=== PATIENT | female | born 1930 | race Caucasian/White ===

== ENCOUNTER → 2016-12-30 | Outpatient (CLI) | payer BC ==
[~2016-12-30] MED LIST: ASCO500T16 PO; ASPCH81X PO; ATOR80TA PO; CALC600T PO; CALCTAB5 PO; CHOL1TAB76 PO; CYAN100020 PO; CZR50 PO; DOCU-94 PO; HYDR-5688 PO; IBUP-1427 PO; INSDGIPEN SC; INSU1INJ SC; INSUINJ4 SC; LATA0.009 OP; LATA0.5S OP; LOSA1TAB38 PO; MAGN250T9 PO; METF-384 PO; NITR0.4S76 SL; NVLG SC; NVLGI SC
[2016-12-30 13:31] LABS: HEMATOCRIT 39.7 % (37-47); MEAN CORPUSCULAR HEMOGLOBIN 28.8 pg (25-34); MEAN CORPUSCULAR HGB CONC 32.7 g/dl (32-36); RED BLOOD COUNT 4.51 M/uL (4.2-5.4); WHITE BLOOD COUNT 7.48 K/uL (4.8-10.8)
[2016-12-30 13:32] LABS: BASO % 0.4 %; BASO ABS # 0.03 K/uL (0-0.2); COMPLETE YES; EOS % 3.5 %; IG% 0.1 %; LYMPH % 13.1 %; LYMPH ABS # 0.98 K/uL (1.2-3.4); MEAN PLATELET VOLUME 10.1 fL (7.4-10.4); MONO % 9.5 %; NEUT % 73.4 %; PLATELET COUNT 234 K/uL (130-400)
[2016-12-30 13:52] LABS: ALT/SGPT 41 U/L (12-78); AST/SGOT 22 U/L (15-37); BLOOD UREA NITROGEN 30 mg/dl (7-18); BUN/CREATININE RATIO 27.1 (10-20); CALCIUM 9.4 mg/dl (8.5-10.1); CARBON DIOXIDE 28 mmol/L (21-32); CHLORIDE 104 mmol/L (98-107); GLUCOSE 236 mg/dl (70-99); POTASSIUM 4.9 mmol/L (3.5-5.1); SODIUM 139 mmol/L (136-145)
[2016-12-30 13:57] LABS: ESTIMATED AVERAGE GLUCOSE 186 mg/dl; HA1C FLAG Normal (Normal)
== END | disposition home or self-care (01) ==
LOC: C.LABBC 11:25
PROVIDERS: ATTEND Internal Medicine
DX: E78.00 Pure hypercholesterolemia, unspecified (principal); E11.9 Type 2 diabetes mellitus without complications

== ENCOUNTER → 2017-03-24 | Day surgery (SDC) | payer BC ==
[2017-03-23 10:05] VITALS: Ht 168.9 cm; Wt 75.0 kg
[~2017-03-24] VITALS: Ht 168.9 cm; Wt 75.0 kg
[~2017-03-24] MED LIST changes: +500ML BSS 0.3ML EPI 1:1000PF IRRIG ONE; +ACETAMINOPHEN 325 MG TAB PO PRN; +AMVISC PLUS 0.8ML SYRINGE INT OCU ONE; +ATROPINE SULFATE 0.1 MG/ML 5ML SYR IV PRN; +AcetaZOLAMIDE 250 MG TAB PO SCH; +BETAXOLOL HCL 0.25% OP SUSP PER DROP CHARGE OPL SCH; +BRIMONIDINE TART 0.2% OP SOLN PER DROP CHARGE ONE; -DOCU-94 PO; +ENDOCOAT 0.85ML SYRINGE INT OCU ONE; +EpINEphrine INJ 1MG/ML AMP 1 MG/ML AMP ONE; +FENTANYL CITRATE INJ 50 MCG/1 ML 2 ML VIAL ONE; -HYDR-5688 PO; -IBUP-1427 PO; +LACTATED RINGER'S 1000ML 500 ML IV SCH; +LIDOCAINE 4% OP SOLN DROP CHARGE ONE; +LIDOCAINE 4% OP SOLN DROP CHARGE OPL SCH; +MIDAZOLAM HCL 1 MG/ML 2ML VIAL ONE; +MIX: 4ML BSS 1ML EPI 1:1000 PF INSTIL ONE; +MOXIFLOXACIN OPH SOLN PER DROP CHARGE ONE; +NITR0.1S SL; -NITR0.4S76 SL; +OCUCOAT 1 ML SOLN IO ONE; +POVIDONE-IODINE OP SOLN 30 ML BTL ONE; +PROPARACAINE 0.5% OP SOLN PER DROP CHARGE OPL SCH; +TOBRAMYCIN/DEXAMETHASONE OPH OINT PER APPLN CHARGE ONE
--- NOTE | 2017-03-24 07:29 | History & Physical Bridge - [place] ---
H&P Re-Evaluation Bridge Note: I have examined the patient, reviewed the History & Physical and in the interval since the performance of the History & Physical I have noted the following changes of clinical significance: No changes noted
[2017-03-24] MEDS: PHENYLEPHRINE HCL 2.5% OP SOLN PER DROP CHARGE OPL SCH ×2 (08:40→08:45)
[2017-03-24] MEDS: CYCLOPENTOLATE HCL 1% OP SOLN PER DROP CHARGE OPL SCH ×2 (08:41→08:47)
[2017-03-24] MEDS: TROPICAMIDE 1% OP SOLN PER DROP CHARGE OPL SCH ×2 (08:42→08:46)
[2017-03-24] MEDS: MOXIFLOXACIN OPH SOLN PER DROP CHARGE OPL SCH ×2 (08:44→08:54)
[2017-03-24] MEDS: LIDOCAINE HCL 1% MPF 2 ML VIAL ONE ×2 (09:40→09:41)
--- NOTE | 2017-03-24 09:44 | Discharge Instructions-SurgCtr ---
Discharge Instructions Date of Service Mar 24, 2017. Visit Reason for Visit: Cataract Left Eye Discharge Discharge Diagnosis / Problem: lens implant left eye Discharge Goals Goal(s): Improve function Medications Stopped Medications Name(s): Stopped Metformin for 48 hours. Activity Recommendations Activity Limitations: resume your previous activity Lifting Limitations: no more than 10 pounds Exercise/Sports Limitations: gradually increase as tolerated May Resume Sexual Activity: when tolerated Shower/Bathe: tomorrow Driving or Machine Use: resume 1 day after discharge Anesthesia . Post Anesthesia Instructions: If you have had General Anesthesia or IV Sedation: * Do not drive today. * Resume driving when surgeon permits. * Do not make important decisions or sign legal documents today. * Call surgeon for: 1. Temperature elevations greater than 101 degrees F. 2. Uncontrollable pain. 3. Excessive bleeding. 4. Persistent nausea and vomiting. 5. Medication intolerance (nausea, vomiting or rash). * For nausea and vomiting use only clear liquids such as: tea, soda, bouillon until nausea subsides, then gradually increase diet as tolerated. * If you have any concerns or questions, call your surgeon's office. If physician is unavailable and it is an emergency, call 911 or go to the nearest emergency room. . Instructions / Follow-Up Instructions / Follow-Up ACTIVITY RECOMMENDATIONS: * Light activities. * Mild irritation and blurred vision are common for the first few days. * You may walk outside, read, watch television. * Redness around the white part of the eye is common. MEDICATIONS: Resume previous medications unless instructed otherwise by your surgeon. Start all eye drops at 1 pm today: * Eye drops (today and tomorrow): Prednisone - one drop in operative eye every 3 hours while awake Ofloxacin - one drop in operative eye every 3 hours while awake Ilevro - one drop in operative eye once a day Continue Glaucoma Drops : Latanoprost in Right Eye Every Evening SPECIAL CARE INSTRUCTIONS: * Tape plastic shield over eye to sleep at night. Call your doctor at with any concerns or problems. FOLLOW UP VISIT: Follow-up with Dr Grimaldo at [facility] office as scheduled. Diet Recommendations Home Diet: no limitations Procedures Procedures Performed: cataract extraction with lens implant Pending Studies Studies pending at discharge: no Medical Emergencies . Who to Call and When: Medical Emergencies: If at any time you feel your situation is an emergency, please call 911 immediately. . Non-Emergent Contact Non-Emergency issues call your: Medical Administrative Assistant Call Non-Emergent contact if: your pain is not controlled [phone] . . "Provider Documentation" section prepared by Jaswinder Grimaldo. .
--- NOTE | 2017-03-24 09:46 | [facility] Operative Report ---
Operative Report Date of Service Mar 24, 2017. Operative Report 1. PREOPERATIVE DIAGNOSIS: Senile nuclear cataract, left eye. 2. POSTOPERATIVE DIAGNOSIS: Senile nuclear cataract, left eye. 3. PROCEDURE: Phacoemulsification of left cataract with posterior chamber lens implant, type [employer], model MX60, power +22 diopters. ANESTHESIA: Local standby. SURGEON: Dr. Grimaldo. COMPLICATIONS: None. OPERATING TIME: 10 minutes. 4. OPERATION AND FINDINGS: DESCRIPTION OF PROCEDURE: The left pupil was dilated. The anesthetic was administered using a topical technique. The left eye was prepped and draped. A speculum was placed. A clear corneal incision was formed. The chamber was filled with Amvisc Plus and Endocoat. Epinephrine solution was used. A paracentesis was placed. A capsulorrhexis was performed. The nucleus was hydrodissected. A lens was removed with phacoemulsification. Time was 9.06 seconds. The aspiration unit was used to remove the cortex. The capsule was filled with Amvisc Plus. The lens implant was folded and placed into the capsule. The incision was hydrated. The Amvisc was aspirated. The wound was secure. The chamber was deep. The pupil was round. Brimonidine, TobraDex ointment and Vigamox solution were placed. The speculum was removed. The patient was returned to the Recovery Room in stable condition. I attest to the content of the Intraoperative Record and any orders documented therein. Any exceptions are noted below. The scribe's documentation has been prepared in my presence, under my direction and personally reviewed by me in its entirety. I confirm that the note above accurately reflects all work, treatment, procedures, and medical decision making performed by me. I personally scribed for Jaswinder Grimaldo M.D. ([email or web address]) on 03/24/17 at 09:46. Electronically submitted by Liv Kelly ([facility]).
[2017-03-24 09:48] VITALS: TEMP 36.6
[2017-03-24 10:17] VITALS: BP 130/72; PULSE 58; O2SAT 98
--- NOTE | 2017-03-24 10:24 | Anesthesia Progress Nt - [facility] ---
Anesthesia Post Op Note Date & Time Mar 24, 2017 at 10:24 Vital Signs Pain Intensity: 0 Vital Signs Past 12 Hours Date Time Temp Pulse Resp B/P (MAP) Pulse Ox O2 Delivery O2 Flow Rate FiO2 03/24/17 10:17 58 16 130/72 (91) 98 Room Air 03/24/17 09:48 36.6 78 16 135/60 (85) 96 Room Air 03/24/17 08:45 36.5 62 18 138/76 (96) 98 Room Air Notes Mental Status: alert / awake / arousable, participated in evaluation Pt Amnestic to Procedure: Yes Nausea / Vomiting: adequately controlled Pain: adequately controlled Airway Patency, RR, SpO2: stable & adequate BP & HR: stable & adequate Hydration State: stable & adequate Anesthetic Complications: no major complications apparent
== END | disposition home or self-care (01) ==
LOC: X.SURG 07:42
PROVIDERS: ATTEND Specialist
DX: H25.12 Age-related nuclear cataract, left eye (principal); I10 Essential (primary) hypertension

== ENCOUNTER → 2017-05-19 | Outpatient (CLI) | payer BC ==
[~2017-05-19] MED LIST changes: -500ML BSS 0.3ML EPI 1:1000PF IRRIG ONE; -ACETAMINOPHEN 325 MG TAB PO PRN; -AMVISC PLUS 0.8ML SYRINGE INT OCU ONE; -ATROPINE SULFATE 0.1 MG/ML 5ML SYR IV PRN; -AcetaZOLAMIDE 250 MG TAB PO SCH; -BETAXOLOL HCL 0.25% OP SUSP PER DROP CHARGE OPL SCH; -BRIMONIDINE TART 0.2% OP SOLN PER DROP CHARGE ONE; -ENDOCOAT 0.85ML SYRINGE INT OCU ONE; -EpINEphrine INJ 1MG/ML AMP 1 MG/ML AMP ONE; -FENTANYL CITRATE INJ 50 MCG/1 ML 2 ML VIAL ONE; -LACTATED RINGER'S 1000ML 500 ML IV SCH; -LIDOCAINE 4% OP SOLN DROP CHARGE ONE; -LIDOCAINE 4% OP SOLN DROP CHARGE OPL SCH; -MIDAZOLAM HCL 1 MG/ML 2ML VIAL ONE; -MIX: 4ML BSS 1ML EPI 1:1000 PF INSTIL ONE; -MOXIFLOXACIN OPH SOLN PER DROP CHARGE ONE; -NITR0.1S SL; +NITR0.4S76 SL; -OCUCOAT 1 ML SOLN IO ONE; -POVIDONE-IODINE OP SOLN 30 ML BTL ONE; -PROPARACAINE 0.5% OP SOLN PER DROP CHARGE OPL SCH; -TOBRAMYCIN/DEXAMETHASONE OPH OINT PER APPLN CHARGE ONE
[2017-05-19 14:14] LABS: ESTIMATED AVERAGE GLUCOSE 174 mg/dl; HA1C FLAG Normal (Normal)
--- NOTE | 2017-05-25 07:07 | CODING QUERY MEDICAL NECESSITY ---
SUPPORTING DIAGNOSIS NEEDED A supporting diagnosis is required for the test/procedure performed on this patient in order for us to be reimbursed by the patient's insurance. Please provide a supporting diagnosis for the following test/procedure listed below next to the test name along with your signature. *If there is no additional diagnosis for this patient that would support the following test/procedure please document that below next to the test/procedure. Test(s)/Procedure(s) that require a supporting diagnosis: * HEMOGLOBIN A1C DIAGNOSIS: Provider Signature: Date: Thank you Mary Cartwright [employer] Once completed, please kindly fax back to [phone] For questions please call [phone]
== END | disposition home or self-care (01) ==
LOC: C.LABBC 11:34
PROVIDERS: ATTEND Internal Medicine
DX: E78.00 Pure hypercholesterolemia, unspecified (principal); E11.49 Type 2 diabetes mellitus with other diabetic neurological complication

== ENCOUNTER → 2017-07-01 | Outpatient (CLI) | payer BC ==
[2017-07-01 13:34] LABS: BASO % 0.4 %; BASO ABS # 0.03 K/uL (0-0.2); COMPLETE YES; EOS % 2.8 %; HEMATOCRIT 39.3 % (37-47); IG% 0.4 %; LYMPH % 15.7 %; LYMPH ABS # 1.33 K/uL (1.2-3.4); MEAN CELL VOLUME 87.5 fL (80-100); MEAN CORPUSCULAR HEMOGLOBIN 28.1 pg (25-34); MEAN CORPUSCULAR HGB CONC 32.1 g/dl (32-36); MEAN PLATELET VOLUME 10.1 fL (7.4-10.4); MONO % 8.8 %; NEUT % 71.9 %; PLATELET COUNT 264 K/uL (130-400); RED BLOOD COUNT 4.49 M/uL (4.2-5.4); WHITE BLOOD COUNT 8.49 K/uL (4.8-10.8)
[2017-07-01 14:02] LABS: CHOLESTEROL/HDL RATIO 2.6; THYROID STIMULATING HORMONE 1.27 uIu/ml (0.300-4.500)
[2017-07-01 14:09] LABS: RATIO 11.3 mcg/mg (0-30.0)
[2017-07-01 14:40] LABS: URINE APPEARANCE CLEAR (CLEAR); URINE BILIRUBIN NEG (NEG); URINE COLOR YELLOW; URINE EPITHELIAL CELL AUTO 0-5 /lpf (0-5); URINE NITRITE NEG (NEG); URINE SPECIFIC GRAVITY 1.024 (1.000-1.030); UROBILINOGEN NEG (NEG)
[2017-07-01 14:45] LABS: MANUAL MICROSCOPIC REQUIRED? NO; REVIEW REQ? NO
== END | disposition home or self-care (01) ==
LOC: C.LABBC 09:39
PROVIDERS: ATTEND Internal Medicine
DX: E78.00 Pure hypercholesterolemia, unspecified (principal)

== ENCOUNTER 2017-07-19 09:48 | Emergency (ER) | payer BC ==
[~2017-07-19] VITALS: Ht 167.6 cm; Wt 77.6 kg
[~2017-07-19 09:48] MED LIST changes: -CALC600T PO; -INSDGIPEN SC; -LATA0.5S OP; -LOSA1TAB38 PO; -NVLG SC
[2017-07-19 09:55] VITALS: TEMP 36.7; Ht 167.6 cm; Wt 77.6 kg
[2017-07-19] MEDS ORDERED: CALC600T PO (10:50)
[2017-07-19] MEDS ORDERED: NVLG SC (10:50)
[2017-07-19] MEDS ORDERED: LATA0.5S OP (10:50)
[2017-07-19] MEDS ORDERED: INSDGIPEN SC (10:50)
[2017-07-19] MEDS ORDERED: LOSA1TAB38 PO (10:50)
[2017-07-19 11:03] LABS: BASO % 0.3 %; BASO ABS # 0.02 K/uL (0-0.2); COMPLETE YES; EOS % 3.5 %; HEMATOCRIT 36.4 % (37-47); IG% 0.4 %; LYMPH ABS # 1.18 K/uL (1.2-3.4); MEAN CELL VOLUME 86.1 fL (80-100); MEAN CORPUSCULAR HEMOGLOBIN 28.6 pg (25-34); MEAN CORPUSCULAR HGB CONC 33.2 g/dl (32-36); MEAN PLATELET VOLUME 9.5 fL (7.4-10.4); MONO % 12.4 %; NEUT % 68.4 %; PLATELET COUNT 233 K/uL (130-400); RED BLOOD COUNT 4.23 M/uL (4.2-5.4); WHITE BLOOD COUNT 7.89 K/uL (4.8-10.8)
[2017-07-19 11:05] LABS: URINE APPEARANCE CLOUDY (CLEAR); URINE BILIRUBIN NEG (NEG); URINE COLOR YELLOW; URINE NITRITE NEG (NEG); URINE SPECIFIC GRAVITY 1.022 (1.000-1.030); UROBILINOGEN NEG (NEG)
[2017-07-19 11:08] LABS: MANUAL MICROSCOPIC REQUIRED? NO; REVIEW REQ? NO
[2017-07-19 11:22] LABS: ALT/SGPT 29 U/L (12-78); AST/SGOT 17 U/L (15-37); BLOOD UREA NITROGEN 29 mg/dl (7-18); BUN/CREATININE RATIO 30.6 (10-20); CALCIUM 9.2 mg/dl (8.5-10.1); CARBON DIOXIDE 28 mmol/L (21-32); CHLORIDE 104 mmol/L (98-107); CREATININE 0.96 mg/dl (0.60-1.20); GLUCOSE 117 mg/dl (70-99); POTASSIUM 4.3 mmol/L (3.5-5.1); SODIUM 139 mmol/L (136-145)
[2017-07-19 11:24] LABS: ALKALINE PHOSPHATASE 136 U/L (45-117)
--- NOTE | 2017-07-19 11:24 | DIAGNOSTIC IMAGING REPORT ---
ABD/PELVIS WITHOUT FOR STONE CLINICAL HISTORY: 86 years-old Female presenting with b/l flank pain eval for stone. TECHNIQUE: Multidetector CT of the abdomen and pelvis was performed without the use of intravenous contrast. IV contrast: None. A dose lowering technique was used consistent with the principles of ALARA (as low as reasonably achievable). COMPARISON: None. CT DOSE (mGy.cm): The estimated cumulative dose is 1090.49 mGy.cm. FINDINGS: Epic Prelude Analyst topogram: Unremarkable. Lung bases: Minimal dependent changes likely atelectasis. Focal 5 mm groundglass nodule in the right lower lobe along the major fissure (series 3 image 9). Normal heart size. Coronary artery and aortic valve calcification. No pericardial or pleural effusion. Liver: Normal morphology. Normal density. Biliary: No gross biliary ductal dilatation allowing for noncontrast technique. Normal gallbladder. Pancreas: Moderate parenchymal atrophy. Coarse parenchymal calcification suggest a history of chronic pancreatitis. Spleen: Normal noncontrast appearance. Splenule noted. Adrenal glands: Normal noncontrast appearance. Kidneys and ureters: Exophytic hypodensities in the right kidney likely cysts. Punctate calculus in the interpolar region of the right kidney, which is nonobstructing. No left renal calculi. Ureters normal. Bladder: Incompletely evaluated secondary to underdistention. Pelvic organs: Uterus and ovaries normal. Bowel: Limited diverticulosis of the sigmoid colon. Mild stool burden throughout normal caliber colon. Normal appendix. No bowel obstruction. Small hiatal hernia. Peritoneal cavity: No free fluid or intraperitoneal gas. Vasculature: Atherosclerosis of the normal caliber abdominal aorta. Lymph nodes: No gross lymphadenopathy allowing for noncontrast technique. Abdominal wall: Diastasis of the rectus abdominis. Infiltration along the bilateral anterior abdominal wall in the subcutaneous tissue could suggest hemorrhage, possibly from injections. Musculoskeletal: Degenerative changes of the spine. IMPRESSION: 1. Punctate nonobstructing right renal calculus. No hydronephrosis. No convincing evidence of acute intra-abdominal pathology. 2. Infiltration along the subcutaneous tissue of the anterior abdominal wall could suggest hemorrhage, possibly from injections. 3. Subsolid 5 mm ulnar nodule in the right lower lobe. Follow-up per [employer] Society 2017 recommendations below. Please refer to below summary of Fleischner Society 2017 recommendations for follow-up of incidental CT nodules (H Leif et al. Guidelines for management of incidental pulmonary nodules detected on CT images: From the Fleischner Society 2017. Radiology 2017; 284: 228-243.) SOLID NODULES Single nodule; size < 6 mm * Low risk patients: No routine follow-up * High risk patients: Optional CT at 12 months Single nodule; size 6-8 mm * Low risk patients: CT at 6-12 months, then consider CT at 18-24 months * High risk patients: CT at 6-12 months, then at 18-24 months Single nodule; size > 8 mm * Either low or high risk patients: Considered CT at 3 months, PET/CT, or tissue sampling Multiple nodules; size < 6 mm * Low risk patients: No routine follow up * High risk patients: Optional CT at 12 months Multiple nodules; size 6-8 mm * Low risk patients: CT at 3-6 months, then consider CT at 18-24 months * High risk patients: CT at 3-6 months, then at 18-24 months Multiple nodules; size > 8 mm * Low risk patients: CT at 3-6 months, then consider at 18-24 months * High risk patients: CT at 3-6 months, then at 18-24 months Note: These guidelines apply to incidental nodules. These guidelines do not apply to patients younger than 35 years, immunocompromised patients, or patients with cancer. * Low risk patients: Minimal or absent history of smoking and/or other known risk factors * High risk patients: History of smoking, exposure to other carcinogens, emphysema, fibrosis, upper lobe location, family history of lung cancer, etc. * If a nodule up to 8 mm is partly solid or is ground glass, further follow-up is required after 24 months to exclude possible slow growing adenocarcinoma. SUBSOLID NODULES Single ground-glass nodule * Nodule size < 6 mm: No routine follow-up * Nodule size > or = 6 mm: CT at 6-12 months to confirm persistence, then CT every 2 years until 5 years Single part-solid nodule * Nodule size < 6 mm: No routine follow-up * Nodules size > or = 6 mm: CT at 3-6 months to confirm persistence. If unchanged and solid component remains < 6 mm, annual CT should be performed for 5 years Multiple nodules * Nodule size < 6 mm: CT at 3-6 months. If stable, consider CT at 2 and 4 years. * Nodules size > or = 6 mm: CT at 3-6 months. Subsequent management based on the most suspicious nodule(s) Electronically signed by: Brayden Sanchez M.D. 07/19/2017 11:23 AM Dictated Date/Time: 07/19/2017 11:16 AM
[2017-07-19 11:56] VITALS: BP 118/65; PULSE 72; O2SAT 98
--- NOTE | 2017-07-19 18:32 | EMERGENCY ROOM VISIT NOTE ---
History Report prepared by Janeth: Dre Campos Under the Supervision of: Dr. Christian Coley M.D. First contact with patient: 10:12 Chief Complaint: ABDOMINAL PAIN Stated Complaint: BACK,ABDOMEN PAIN History of Present Illness The patient is a 86 year old female who presents to the Emergency Room with complaints of intermittent bilateral lower abdominal pain beginning a few weeks ago. She also complains of lower back pain. Her pain is worsened with movement. The patient states that her pain is not present unless she is moving. She describes her pain as "sharp". The patient states that the episodes of pain can last for up to a minute. Her current pain does not radiate down her legs. She notes that she had an episode of shooting pain down her leg a few months ago. The patient denies any fevers, vomiting, diarrhea, hematuria, urinary symptoms, chest pain, SOB, or black or bloody stools. She was recently seen by her PCP, but states that she did not mention her symptoms because she thought they were "just a back-ache". She denies swelling to her legs. Source of History: patient Onset: A few weeks ago Position: abdomen (bilateral lower) Quality: sharp Timing: intermittent Modifying Factors (Worsening): movement Associated Symptoms: + back pain (lower), No fevers, No chest pain, No SOB, No vomiting, No melena, No hematochezia, No diarrhea, No urinary symptoms Note: Additional symptoms: intermittent calf cramping. Review of Systems See HPI for pertinent positives & negatives. A total of 10 systems reviewed and were otherwise negative. Past Medical & Surgical Medical Problems: (1) Acute non-ST segment elevation myocardial infarction (2) Breast cancer (3) Diabetes (4) Heart disease (5) History of - hypertension (6) Hypertension (7) Kidney disease Surgical Problems: (1) S/P mastectomy Family History Cancer Diabetes mellitus Heart disease Hypertension Social History Smoking Status: Never Smoker Alcohol Use: none Drug Use: none Marital Status: Housing Status: lives with family Occupation Status: retired Current/Historical Medications Scheduled Ascorbic Acid (Ascorbic Acid), 500 MG PO QAM Aspirin (Aspirin Chewable), 81 MG PO BID Atorvastatin Calcium (Lipitor), 80 MG PO QAM Calcium Carbonate (Calcium 600), 600 MG PO QAM Cholecalciferol (D 2000), 2,000 MG PO QAM Cyanocobalamin (Vitamin B12), 1,000 MCG PO QAM Insulin Aspart (Novolog), 20 UNITS SC AC Insulin Glargine (Lantus Solostar), 35 UNITS SC QPM Insulin Isophan/Regular (Humulin 70/30), 10 SC HS Latanoprost (Xalatan 0.005% Oph Nicolle), 1 DROPS OP HS Losartan Potassium (Cozaar), 100 MG PO DAILY Magnesium (Magnesium), 250 MG PO HS Metformin Hcl (Glucophage), 500 MG PO BID Nitroglycerin (Nitroglycerin Lingual), 1 DOSE SL DIRECTED Allergies Coded Allergies: Methyldopa (Verified Allergy, Intermediate, HEPATITIS, 07/19/17) Physical Exam Vital Signs Date Time Temp Pulse Resp B/P (MAP) Pulse Ox O2 Delivery O2 Flow Rate FiO2 07/19/17 11:56 72 16 118/65 98 07/19/17 11:39 118/65 07/19/17 10:40 79 16 104/65 98 Room Air 07/19/17 10:13 67 07/19/17 09:55 36.7 75 20 129/74 98 Room Air Physical Exam Constitutional: Vital signs reviewed. Eyes: Pupils are equal round reactive to light. Conjunctiva are noninjected. ENT: Pharynx is clear without erythema or exudate. Mucous membranes are moist. Neck supple without meningeal signs. Respiratory: Clear to auscultation bilaterally. Breath sounds are equal bilaterally. Cardiovascular: Regular rate and rhythm. No rubs or gallops. GI: Soft, nondistended and nontender. Bowel sounds are present. Ecchymotic areas from insulin injections without tenderness or erythema. Musculoskeletal: No peripheral edema. No lower extremity tenderness. No CVA tenderness. No midline tenderness to the thoracic, or lumbosacral spine. Integumentary: No cyanosis. Neurological: The patient is awake and alert. No focal deficits. Motor and sensation intact to the bilateral lower extremities. Psychiatric: Normal affect. Medical Decision & Procedures ER Provider Diagnostic Interpretation: CT results as stated below per my review and radiologist interpretation. ABD/PELVIS WITHOUT FOR STONE FINDINGS: Teacher Specialist topogram: Unremarkable. Lung bases: Minimal dependent changes likely atelectasis. Focal 5 mm groundglass nodule in the right lower lobe along the major fissure (series 3 image 9). Normal heart size. Coronary artery and aortic valve calcification. No pericardial or pleural effusion. Liver: Normal morphology. Normal density. Biliary: No gross biliary ductal dilatation allowing for noncontrast technique. Normal gallbladder. Pancreas: Moderate parenchymal atrophy. Coarse parenchymal calcification suggest a history of chronic pancreatitis. Spleen: Normal noncontrast appearance. Splenule noted. Adrenal glands: Normal noncontrast appearance. Kidneys and ureters: Exophytic hypodensities in the right kidney likely cysts. Punctate calculus in the interpolar region of the right kidney, which is nonobstructing. No left renal calculi. Ureters normal. Bladder: Incompletely evaluated secondary to underdistention. Pelvic organs: Uterus and ovaries normal. Bowel: Limited diverticulosis of the sigmoid colon. Mild stool burden throughout normal caliber colon. Normal appendix. No bowel obstruction. Small hiatal hernia. Peritoneal cavity: No free fluid or intraperitoneal gas. Vasculature: Atherosclerosis of the normal caliber abdominal aorta. Lymph nodes: No gross lymphadenopathy allowing for noncontrast technique. Abdominal wall: Diastasis of the rectus abdominis. Infiltration along the bilateral anterior abdominal wall in the subcutaneous tissue could suggest hemorrhage, possibly from injections. Musculoskeletal: Degenerative changes of the spine. IMPRESSION: 1. Punctate nonobstructing right renal calculus. No hydronephrosis. No convincing evidence of acute intra-abdominal pathology. 2. Infiltration along the subcutaneous tissue of the anterior abdominal wall could suggest hemorrhage, possibly from injections. 3. Subsolid 5 mm ulnar nodule in the right lower lobe. Follow-up per [employer] Society 2017 recommendations below. Please refer to below summary of Fleischner Society 2017 recommendations for follow-up of incidental CT nodules (H Leif et al. Guidelines for management of incidental pulmonary nodules detected on CT images: From the Fleischner Society 2017. Radiology 2017; 284: 228-243.) SOLID NODULES Single nodule; size < 6 mm * Low risk patients: No routine follow-up * High risk patients: Optional CT at 12 months Single nodule; size 6-8 mm * Low risk patients: CT at 6-12 months, then consider CT at 18-24 months * High risk patients: CT at 6-12 months, then at 18-24 months Single nodule; size > 8 mm * Either low or high risk patients: Considered CT at 3 months, PET/CT, or tissue sampling Multiple nodules; size < 6 mm * Low risk patients: No routine follow up * High risk patients: Optional CT at 12 months Multiple nodules; size 6-8 mm * Low risk patients: CT at 3-6 months, then consider CT at 18-24 months * High risk patients: CT at 3-6 months, then at 18-24 months Multiple nodules; size > 8 mm * Low risk patients: CT at 3-6 months, then consider at 18-24 months * High risk patients: CT at 3-6 months, then at 18-24 months Note: These guidelines apply to incidental nodules. These guidelines do not apply to patients younger than 35 years, immunocompromised patients, or patients with cancer. * Low risk patients: Minimal or absent history of smoking and/or other known risk factors * High risk patients: History of smoking, exposure to other carcinogens, emphysema, fibrosis, upper lobe location, family history of lung cancer, etc. * If a nodule up to 8 mm is partly solid or is ground glass, further follow-up is required after 24 months to exclude possible slow growing adenocarcinoma. SUBSOLID NODULES Single ground-glass nodule * Nodule size < 6 mm: No routine follow-up * Nodule size > or = 6 mm: CT at 6-12 months to confirm persistence, then CT every 2 years until 5 years Single part-solid nodule * Nodule size < 6 mm: No routine follow-up * Nodules size > or = 6 mm: CT at 3-6 months to confirm persistence. If unchanged and solid component remains < 6 mm, annual CT should be performed for 5 years Multiple nodules * Nodule size < 6 mm: CT at 3-6 months. If stable, consider CT at 2 and 4 years. * Nodules size > or = 6 mm: CT at 3-6 months. Subsequent management based on the most suspicious nodule(s) Electronically signed by: Brayden Sanchez M.D. 07/19/2017 11:23 AM Laboratory Results 07/19/17 10:11 Red Blood Count 4.23, Mean Corpuscular Volume 86.1, Mean Corpuscular Hemoglobin 28.6, Mean Corpuscular Hemoglobin Concent 33.2, Mean Platelet Volume 9.5, Neutrophils (%) (Auto) 68.4, Lymphocytes (%) (Auto) 15.0, Monocytes (%) (Auto) 12.4, Eosinophils (%) (Auto) 3.5, Basophils (%) (Auto) 0.3, Neutrophils # (Auto ) 5.40, Lymphocytes # (Auto) 1.18, Monocytes # (Auto) 0.98, Eosinophils # (Auto ) 0.28, Basophils # (Auto) 0.02 07/19/17 10:11 Test 07/19/17 10:11 White Blood Count 7.89 K/uL (4.8-10.8) Red Blood Count 4.23 M/uL (4.2-5.4) Hemoglobin 12.1 g/dL (12.0-16.0) Hematocrit 36.4 % (37-47) Mean Corpuscular Volume 86.1 fL (80-100) Mean Corpuscular Hemoglobin 28.6 pg (25-34) Mean Corpuscular Hemoglobin Concent 33.2 g/dl (32-36) Platelet Count 233 K/uL (130-400) Mean Platelet Volume 9.5 fL (7.4-10.4) Neutrophils (%) (Auto) 68.4 % Lymphocytes (%) (Auto) 15.0 % Monocytes (%) (Auto) 12.4 % Eosinophils (%) (Auto) 3.5 % Basophils (%) (Auto) 0.3 % Neutrophils # (Auto) 5.40 K/uL (1.4-6.5) Lymphocytes # (Auto) 1.18 K/uL (1.2-3.4) Monocytes # (Auto) 0.98 K/uL (0.11-0.59) Eosinophils # (Auto) 0.28 K/uL (0-0.5) Basophils # (Auto) 0.02 K/uL (0-0.2) RDW Standard Deviation 45.0 fL (36.4-46.3) RDW Coefficient of Variation 14.2 % (11.5-14.5) Immature Granulocyte % (Auto) 0.4 % Immature Granulocyte # (Auto) 0.03 K/uL (0.00-0.02) Urine Color YELLOW Urine Appearance CLOUDY (CLEAR) Urine pH 5.0 (4.5-7.5) Urine Specific [place] 1.022 (1.000-1.030) Urine Protein NEG (NEG) Urine Glucose (UA) NEG (NEG) Urine Ketones NEG (NEG) Urine Occult Blood NEG (NEG) Urine Nitrite NEG (NEG) Urine Bilirubin NEG (NEG) Urine Urobilinogen NEG (NEG) Urine Leukocyte Esterase SMALL (NEG) Urine WBC (Auto) 1-5 /hpf (0-5) Urine RBC (Auto) 0-4 /hpf (0-4) Urine Hyaline Casts (Auto) 1-5 /lpf (0-5) Urine Epithelial Cells (Auto) 10-20 /lpf (0-5) Urine Bacteria (Auto) NEG (NEG) Anion Gap 7.0 mmol/L (3-11) Est Creatinine Clear Calc Drug Dose 45.0 ml/min Estimated GFR () 62.5 Estimated GFR (Non- 53.9 BUN/Creatinine Ratio 30.6 (10-20) Calcium Level 9.2 mg/dl (8.5-10.1) Total Bilirubin 0.3 mg/dl (0.2-1) Direct Bilirubin < 0.1 mg/dl (0-0.2) Aspartate Amino Transf (AST/SGOT) 17 U/L (15-37) Alanine Aminotransferase (ALT/SGPT) 29 U/L (12-78) Alkaline Phosphatase 136 U/L (45-117) Total Protein 6.6 gm/dl (6.4-8.2) Albumin 3.3 gm/dl (3.4-5.0) Lipase 181 U/L (73-393) Laboratory results as reviewed by me. ED Course 1014: The patient was evaluated in room B10. A complete history and physical exam was performed. 1135: Upon reevaluation, the patient appeared to have improvement of her symptoms. She has no pain currently. I discussed tonight's findings with her. She verbalized agreement of the treatment plan. The patient was discharged home. Medical Decision this is an 86-year-old female who presents with bilateral abdominal pain. Differential diagnosis includes renal colic, hydronephrosis, strain, lumbar disc disease, pancreatitis. I did perform a limited focused review of portions of the patient's old chart on the electronic medical record. The patient has had no recent pertinent visits to this hospital. I did evaluate the patient as noted above. The patient is presenting with bilateral flank pain going into her abdomen. She states that it is worse with movement suggesting a musculoskeletal cause. It is intermittent. IV access was established. I did order and personally review the patient's urine analysis as described above. I did order and review the patient's blood work as noted in the electronic medical record. Her white blood cell count is not elevated. Labs are otherwise unremarkable. I did order a CT of the abdomen and pelvis. I did review the images myself as well as the radiology report as described above. There is no evidence of acute process. She does have a pulmonary nodule which I discussed with her. I did discuss all of her test results with her. At this time she is not having any significant pain. She does have significant degenerative changes to her back which may possibly be causing her bilateral flank pain. I did recommend she follow closely with her doctor for further evaluation. She was given return instructions as outlined below. Medication Reconcilliation Current Medication List: was personally reviewed by me Blood Pressure Screening Patient's blood pressure: Elevated blood pressure Blood pressure disposition: Referred to PCP Impression Primary Impression: Bilateral flank pain Additional Impression: Pulmonary nodule, right Scribe Attestation The scribe's documentation has been prepared under my direct and personally reviewed by me in its entirety. I confirm that the note above accurately reflects all work, treatment, procedures, and medical decision making performed by me. Departure Information Dispostion Home / Self-Care Referrals Jeffery Sarkar M.D. (PCP) Forms HOME CARE DOCUMENTATION FORM, IMPORTANT VISIT INFORMATION Patient Instructions ED Abdominal Pain Unkn Cause, ED Nodule Solitary Pulmonary, My [facility] Additional Instructions You have been examined and treated today on an emergency basis only. This is not a substitute for, or an effort to provide, complete comprehensive medical care. It is impossible to recognize and treat all injuries or illnesses in a single emergency department visit. It is therefore important that you follow up closely with your physician. Call as soon as possible for an appointment. Return for worsening symptoms or if you develop fever, vomiting, loss of control of your bowel or bladder, numbness or weakness to your legs, numbness to your private area, difficulty urinating, or any other concerning symptoms. Problem Qualifiers
== END 2017-07-19 11:49 | disposition home or self-care (01) ==
LOC: C.EDB 09:49
DX: R10.30 Lower abdominal pain, unspecified (principal); R91.1 Solitary pulmonary nodule; I25.2 Old myocardial infarction; Z85.3 Personal history of malignant neoplasm of breast; E11.9 Type 2 diabetes mellitus without complications; I10 Essential (primary) hypertension; N28.9 Disorder of kidney and ureter, unspecified; Z90.10 Acquired absence of unspecified breast and nipple; Z80.9 Family history of malignant neoplasm, unspecified; Z83.3 Family history of diabetes mellitus; Z82.49 Family history of ischemic heart disease and other diseases of the circulatory system; Z79.82 Long term (current) use of aspirin; Z79.4 Long term (current) use of insulin; Z79.84 Long term (current) use of oral hypoglycemic drugs; Z79.899 Other long term (current) drug therapy

== ENCOUNTER → 2017-09-21 | Outpatient (CLI) | payer BC ==
[~2017-09-21] MED LIST changes: +CALC600T PO; -CALCTAB5 PO; -CZR50 PO; +INSDGIPEN SC; -INSUINJ4 SC; -LATA0.009 OP; +LATA0.5S OP; +LOSA1TAB38 PO; +NITR0.1S SL; -NITR0.4S76 SL; +NVLG SC; -NVLGI SC
[2017-09-21 13:53] LABS: ESTIMATED AVERAGE GLUCOSE 180 mg/dl; HA1C FLAG Normal (Normal)
== END | disposition home or self-care (01) ==
LOC: C.LABBC 10:05
PROVIDERS: ATTEND Internal Medicine
DX: E78.00 Pure hypercholesterolemia, unspecified (principal)

== ENCOUNTER → 2018-05-27 | Outpatient (CLI) | payer BC ==
[2018-05-28 07:07] LABS: HEMOGLOBIN A1C 7.9 % (4.5-5.6)
== END | disposition home or self-care (01) ==
LOC: C.LABBC 14:49
PROVIDERS: ATTEND Internal Medicine
DX: E11.9 Type 2 diabetes mellitus without complications (principal); Z79.4 Long term (current) use of insulin